=== PATIENT | male | born 1955 | race Two or more races ===

== ENCOUNTER 2023-08-06 20:45 | Emergency (ER) | payer MEDICARE, MEDICAID ==
[~2023-08-06] VITALS: Ht 170.2 cm; Wt 74.8 kg
[2023-08-06 22:03] LABS: BASOPHILS # (AUTO) 0.1 K/uL (0.0-0.2); BASOPHILS % (AUTO) 0.5 % (0.0-2.0); EOSINOPHILS # (AUTO) 0.3 K/uL (0.0-0.7); HEMATOCRIT 38 % (39-51); HEMOGLOBIN 12.6 g/dL (13.5-17.5); LYMPHOCYTES # (AUTO) 1.7 K/uL (0.8-4.8); LYMPHOCYTES % (AUTO) 11.8 % (20.0-44.0); MEAN CORPUSCULAR HEMOGLOBIN 28 PG (26.0-33.0); MEAN CORPUSCULAR HGB CONC 34 g/dl (31.0-36.0); MEAN CORPUSCULAR VOLUME 84 fL (80-96); MONOCYTES # (AUTO) 1.5 K/uL (0.1-1.30); MONOCYTES % (AUTO) 10.8 % (2.0-12.0); NEUTROPHILS # (AUTO) 10.5 K/uL (1.8-8.9); NEUTROPHILS % (AUTO) 74.9 % (43.0-81.0); PLATELET COUNT (AUTO) 357 K/uL (150-450); RED BLOOD CELL COUNT(AUTO) 4.44 MIL/uL (4.5-6.0); RED CELL DISTRIBUTION WIDTH 13.9 % (11.5-15.0)
[2023-08-06 22:16] LABS: ALBUMIN 2.6 g/dL (3.4-5.0); BILIRUBIN,TOTAL 0.2 mg/dL (0.2-1.0); CALCIUM, SERUM 8.9 mg/dL (8.5-10.1); CREATININE 0.6 mg/dL (0.6-1.3); POTASSIUM 3.8 mmol/L (3.5-5.1); TOTAL PROTEIN, SERUM 6.9 g/dL (6.4-8.2)
[2023-08-06 22:20] LABS: LACTIC ACID 0.8 mmol/L (0.4-2.0)
[2023-08-06 23:31] LABS: ABG BASE EXCESS 1.9 mmol/L; ABG OXYGEN SATURATION 95.4 % (92.0-98.5); ABG PCO2 41.3 mmHg (35.0-45.0); ABG PH 7.425 (7.350-7.450); ABG PO2 76.6 mmHg (75.0-100.0); ABG TOTAL HEMOGLOBIN 13.3 G/dL (13.5-18.0); COHb 0.4 % (0.5-1.5); MetHb 0.3 % (0.0-1.5); O2Hb 94.7 % (94.0-97.0); SITE, ABG Right Radial; VENT MODE, BG ROOM AIR
[2023-08-06] MEDS ORDERED: ALBUTEROL FS 2.5 MG/3 ML VIAL.NEB ONE (23:37)
[2023-08-06] MEDS: ALBUTEROL FS 2.5 MG/3 ML VIAL.NEB NEB ONE (23:39)
[2023-08-06 23:42] VITALS: O2SAT 94
[2023-08-06 23:56] VITALS: O2SAT 99
[2023-08-07] MEDS ORDERED: ALBU8.5H8 IH (00:39)
[2023-08-07] MEDS ORDERED: AMOX-430 PO (00:39)
[2023-08-07] MEDS ORDERED: BENZ-13 PO (00:39)
[2023-08-07 04:32] VITALS: BP 119/68; TEMP 97.5; O2SAT 99
== END 2023-08-07 04:32 | disposition home or self-care (01) ==
LOC: ER 20:47
DX: J40 Bronchitis, not specified as acute or chronic (principal)
CPT/HCPCS: 36415; 36600; 71045-TC; 80053-TC; 82803-TC; 83605-TC; 83880; 84484-TC; 85025-TC